=== PATIENT | female | born 1960 | race Caucasian/White ===

== ENCOUNTER 2022-12-07 08:46 | Outpatient (CLI) | payer BC ==
[2022-12-07] MEDS ORDERED: Iopamidol 370 76% 100 ML VIAL ONE (09:36)
== END 2022-12-07 08:47 | disposition home or self-care (01) ==
LOC: CSHCT 08:46
PROVIDERS: ATTEND Internal Medicine Cardiovascular Disease
DX: I65.29 Occlusion and stenosis of unspecified carotid artery (principal); I65.22 Occlusion and stenosis of left carotid artery
CPT/HCPCS: 70498; 82565

== ENCOUNTER 2023-09-14 07:41 | Day surgery (SDC) | payer BC ==
[2023-09-13 11:15] VITALS: BMI 29.2
[2023-09-14] MEDS ORDERED: PROPOFOL 20 ML ONE ×2 (09:45→09:56)
== END 2023-09-14 10:32 | disposition home or self-care (01) ==
LOC: CSHSDC 07:41
PROVIDERS: ATTEND Internal Medicine Gastroenterology
PROC: 0DD68ZX Extraction of Stomach, Via Natural or Artificial Opening Endoscopic, Diagnostic (ICD-10-PCS; principal; 2023-09-14)
DX: K31.7 Polyp of stomach and duodenum (principal); K44.9 Diaphragmatic hernia without obstruction or gangrene; K21.9 Gastro-esophageal reflux disease without esophagitis; F17.210 Nicotine dependence, cigarettes, uncomplicated; I10 Essential (primary) hypertension; E78.5 Hyperlipidemia, unspecified; M19.90 Unspecified osteoarthritis, unspecified site; Z88.1 Allergy status to other antibiotic agents; Z79.899 Other long term (current) drug therapy
CPT/HCPCS: 76700; 88305; J2704

== ENCOUNTER 2024-07-14 22:52 | Inpatient (IN) | payer BC ==
[~2024-07-14 22:52] MED LIST: Iopamidol 370 76% 100 ML VIAL ONE
[2024-07-14] MEDS ORDERED: Morphine 4 MG/ML VIAL ONE (23:10)
[2024-07-14] MEDS ORDERED: Ondansetron PF 4 MG/2 ML Vial ONE (23:10)
[2024-07-14 23:36] LABS: #Basophils 0.05 10x3/uL (0.0-0.2); #Eosinophils 0.21 10x3/uL (0.0-0.5); #Monocytes 0.61 10x3/uL (0.0-1.1); #Neutrophils 5.71 10x3/uL (1.5-8.4); %Basophils 0.6 % (0.0-2.0); %Eosinophils 2.4 % (0.0-6.0); %Lymphocytes 23.1 % (18.0-47.0); %Monocytes 7.1 % (0.0-10.0); %Neutrophils 66.6 % (40.0-75.0); Hematocrit 42.5 % (34.9-44.5); Hemoglobin 14.1 g/dL (12.0-15.5); Mean Corpuscular HGB CONC 33.2 g/dL (32.0-36.0); Mean Corpuscular Hemoglobin 29.1 pg (27.0-33.0); Mean Corpuscular Volume 87.8 fL (81.6-98.3); Mean Platelet Volume 10.7 fL (7.4-10.4); Platelet Count 197 10x3/uL (150-450); RBC Distribution Width 13.4 % (11.5-14.5); Red Blood Cell (RBC) Count 4.84 10x6/uL (3.90-5.03); White Blood Cell (WBC) Count 8.6 10x3/uL (3.5-10.5)
[2024-07-14 23:48] LABS: ALT (SGPT) 15 U/L (8-55); AST (SGOT) 18 U/L (5-34); Albumin 4.2 g/dL (3.4-4.8); Alkaline Phosphatase 64 U/L (40-110); Anion Gap 14 mmol/L (10-20); BUN (Urea Nitrogen) 13 mg/dL (9.8-20.1); Bilirubin, Total 0.5 mg/dL (0.2-1.2); Calc. Creatinine Clearance 0 mL/min (70-130); Calcium 9.7 mg/dL (7.8-10.44); Carbon Dioxide 28 mmol/L (23-31); Chloride 102 mmol/L (98-107); Estimated GFR 73; Globulin 2.9 g/dL (2.4-3.5); Glucose 134 mg/dL (80-115); Lipase 29 U/L (8-78); Potassium 3.5 mmol/L (3.5-5.1); Protein, Total 7.1 g/dL (5.8-8.1); Sodium 140 mmol/L (136-145)
[2024-07-14 23:54] LABS: Troponin I Less than 0.010 ng/mL (< 0.028)
[2024-07-15 00:34] LABS: Bilirubin Neg (Negative); Blood, Urine Negative (Negative); Clarity Clear (Clear); Glucose, Urine (Dipstick) Normal (Negative); Ketone, Urine Negative (Negative); Leukocyte Negative (Negative); Nitrite Negative (Negative); Protein, Urine (Dipstick) Negative (Neg-Trace); Specific Gravity, Urine 1.015 (1.005-1.030); Urobilinogen Normal mg/dL (Less than 2)
[2024-07-15 00:53] LABS: CAUTI Indications for Culture Pelvic or flank pain; RBC/HPF 0-3 HPF (0-3); Squamous Epithelial 0-3 HPF (0-3); WBC/HPF 0-3 HPF (0-3)
[2024-07-15 00:54] LABS: Bacteria/HPF Rare-Few HPF (None Seen); Urine Culture Reflex No No
[2024-07-15] MEDS ORDERED: Morphine 4 MG/ML VIAL ONE ×2 (01:31→01:32)
[2024-07-15 02:15] VITALS: BMI 29.6
[2024-07-15] MEDS ORDERED: Ondansetron PF 4 MG/2 ML Vial IVP PRN (02:31)
[2024-07-15] MEDS: Sodium Chloride 0.9% 1,000 ML IV SCH (02:40)
[2024-07-15] MEDS: Morphine 4 MG/ML VIAL SLOW IVP PRN (06:27)
[2024-07-15] MEDS ORDERED: PROPOFOL 0 ML ONE (09:23)
[2024-07-15] MEDS ORDERED: Lidocaine 1% PF 5 ML VIAL ONE (09:23)
[2024-07-15] MEDS ORDERED: Rocuronium Bromide 10 MG/ML (10ML VIAL) ONE (09:23)
[2024-07-15] MEDS ORDERED: fentaNYL 50 mcg/mL 1 mL Vial ONE ×3 (09:50→11:25)
[2024-07-15] MEDS ORDERED: Ondansetron PF 4 MG/2 ML Vial ONE (10:04)
[2024-07-15] MEDS ORDERED: Dexamethasone 4 mg/ml Vial ONE (10:04)
[2024-07-15] MEDS ORDERED: ePHEDrine Sulfate 50 MG/10 ML VIAL ONE (10:10)
[2024-07-15] MEDS ORDERED: Bupivacaine/Epinephrine 0.25% 30 ML VIAL ONE (10:10)
[2024-07-15] MEDS ORDERED: CEFAZOLIN 2 GM VIAL ONE (10:10)
[2024-07-15] MEDS ORDERED: PHENYLEPHRINE-NS 100 MCG/ML 10 ML SYRINGE ONE (10:19)
[2024-07-15] MEDS ORDERED: PROPOFOL 20 ML ONE (10:42)
[2024-07-15] MEDS ORDERED: SUGAMMADEX SODIUM 200 MG/2 ML VIAL ONE (10:42)
[2024-07-15 18:03] VITALS: BP 131/60; TEMP 97.7
== END 2024-07-15 18:30 | disposition home or self-care (01) | DRG 355 ==
LOC: CSHERS 22:52 → CSHTELE 07-15 00:53
PROVIDERS: ADMIT Specialist; ATTEND Specialist
PROC: 0WQF0ZZ Repair Abdominal Wall, Open Approach (ICD-10-PCS; principal; 2024-07-15)
DX: K43.6 Other and unspecified ventral hernia with obstruction, without gangrene (principal); E78.00 Pure hypercholesterolemia, unspecified; F17.210 Nicotine dependence, cigarettes, uncomplicated; I10 Essential (primary) hypertension; E11.9 Type 2 diabetes mellitus without complications; Z88.1 Allergy status to other antibiotic agents; Z79.899 Other long term (current) drug therapy; Z79.82 Long term (current) use of aspirin
CPT/HCPCS: 71045; 74177; 80053; 81001; 83605; 83690; 84484; 85025; 93005; 93010; 96374; 96375; 96376; J1100; J2272; J2405; J2704; J3010; J7030; Q9967